=== PATIENT | female | born 1970 | race Caucasian/White ===

== ENCOUNTER 2022-04-11 06:36 | Emergency (ER) | payer MEDICAID ==
[~2022-04-11] VITALS: Ht 170.2 cm; Wt 92.0 kg
[~2022-04-11 06:36] MED LIST: ASPI-325 PO; ATOR20TA50 PO; NITR0.4S29 SL
[2022-04-11] MEDS ORDERED: MAALOX PLUS or MAALOX 30 ML PO ONE (07:00)
[2022-04-11] MEDS ORDERED: FAMOTIDINE 20 MG TAB PO ONE (07:00)
[2022-04-11] MEDS ORDERED: LIDOCAINE VISCOUS 2% 15ML UD PO ONE (07:00)
[2022-04-11] MEDS ORDERED: ACETAMINOPHEN 325 MG TAB PO ONE (07:00)
[2022-04-11] MEDS ORDERED: ONDANSETRON ODT 4 MG TAB PO ONE (07:00)
[2022-04-11 08:11] VITALS: BP 133/91
[2022-04-11] MEDS ORDERED: ONDA-144 PO (08:20)
== END 2022-04-11 07:45 | disposition home or self-care (01) ==
LOC: ER 06:36 → EEVIPCON 06:36 → ER 07:45
DX: R10.13 Epigastric pain (principal); R11.2 Nausea with vomiting, unspecified; R19.7 Diarrhea, unspecified; I11.0 Hypertensive heart disease with heart failure; I50.9 Heart failure, unspecified; J44.9 Chronic obstructive pulmonary disease, unspecified; Z90.49 Acquired absence of other specified parts of digestive tract
CPT/HCPCS: 99284; Q0162